=== PATIENT | male | born 2000 | race American Indian/Alaskan Native ===

== ENCOUNTER 2020-07-29 14:01 | Emergency (ER) | payer OTHER ==
[~2020-07-29] VITALS: Ht 172.7 cm; Wt 93.2 kg
[2020-07-29] MEDS ORDERED: NS 1,000 ML IV ONE (14:20)
[2020-07-29 14:58] LABS: BASO # 0.1 10^3/uL (0.0-0.2); BASO % 0.5 % (0.0-1.0); EOS % 0.1 % (0.0-3.0); HEMATOCRIT 45.2 % (42.0-52.0); HEMOGLOBIN 15.1 g/dl (13.5-17.5); LYMPH # 1.3 10^3/uL (1.5-5.0); LYMPH % 11.3 % (24.0-44.0); MEAN CORPUSCULAR HEMOGLOBIN 29.5 pg (27.0-33.0); MEAN CORPUSCULAR HGB CONC 33.4 g/dl (32.0-36.5); MEAN CORPUSCULAR VOLUME 88.5 fl (80.0-96.0); MONO # 0.8 10^3/uL (0.0-0.8); MONO % 6.8 % (2.0-8.0); NEUTROPHILS # 9.2 10^3/uL (1.5-8.5); NEUTROPHILS % 80.9 % (36.0-66.0); PLATELET COUNT, AUTOMATED 314 10^3/uL (150-450); RED BLOOD COUNT 5.11 10^6/uL (4.30-6.10); WHITE BLOOD COUNT 11.4 10^3/uL (4.0-10.0)
[2020-07-29 15:22] LABS: AMPHETAMINES LEVEL URINE NEGATIVE (NEGATIVE); BARBITURATES URINE NEGATIVE (NEGATIVE); BENZODIAZEPINES URINE NEGATIVE (NEGATIVE); CANNABINOIDS URINE NEGATIVE (NEGATIVE); COCAINE METABOLITE URINE NEGATIVE (NEGATIVE); METHADONE URINE NEGATIVE (NEGATIVE); OPIATES URINE NEGATIVE (NEGATIVE); PHENCYCLIDINE URINE NEGATIVE (NEGATIVE)
[2020-07-29 15:33] LABS: ALBUMIN 4.6 GM/DL (3.2-5.2); ALT/SGPT 15 U/L (12-78); BILIRUBIN,DIRECT 0.4 MG/DL (0.0-0.2); BILIRUBIN,TOTAL 1.4 MG/DL (0.2-1.0); BLOOD UREA NITROGEN 8 MG/DL (7-18); CALCIUM LEVEL 9.5 MG/DL (8.5-10.1); CARBON DIOXIDE LEVEL 24 MEQ/L (21-32); CHLORIDE LEVEL 99 MEQ/L (98-107); CK-MB VALUE MASS 1.6 NG/ML (<3.6); CPK CREATINE PHOSPHOKINASE 524 U/L (39-308); CREATININE FOR GFR 0.78 MG/DL (0.70-1.30); GLOMERULAR FILTRATION RATE > 60.0 (>60); GLUCOSE, FASTING 94 MG/DL (70-100); LIPASE 48 U/L (73-393); MB/CK RELATIVE INDEX 0.31 (< OR =4); POTASSIUM SERUM 3.3 MEQ/L (3.5-5.1); SODIUM LEVEL 134 MEQ/L (136-145); THYROID STIMULATING HORMONE 0.804 uIU/ML (0.358-3.740); TOTAL PROTEIN 8.3 GM/DL (6.4-8.2); TROPONIN I < 0.02 NG/ML (< 0.10)
[2020-07-29 17:11] LABS: ACETAMINOPHEN LEVEL < 2.0 UG/ML (10.0-30.0); SALICYLATE LEVEL < 1.7 MG/DL (5.0-30.0)
[2020-07-29 18:29] VITALS: BP 150/95
--- NOTE | 2020-07-30 06:35 | ECGEPIP ---
[facility] - ED Test Date: 2020-07-29 Pat Name: VANNESSA ESPOSITO Department: Room: - Gender: Male Intranet Specialist: : 2000 Requested By: [place] Order Number: [id number] Reading MD: Sharifa Millan Measurements Intervals [place] Rate: 72 P: 63 MA: 130 QRS: 45 QRSD: 98 T: 32 QT: 422 QTc: 462 Interpretive Statements Normal sinus rhythm with sinus arrhythmia Nonspecific ST T wave changes Borderline prolonged QTc No prior ECG for comparison Electronically Signed on 07-30-2020 6:34:44 EDT by Sharifa Millan
== END 2020-07-29 18:35 | disposition home or self-care (01) ==
LOC: EDBD 14:01 → M ED 14:01
DX: U07.0 Vaping-related disorder (principal); R45.0 Nervousness; T50.905A Adverse effect of unspecified drugs, medicaments and biological substances, initial encounter; F12.10 Cannabis abuse, uncomplicated

== ENCOUNTER 2020-07-30 10:47 | Observation (INO) | payer OTHER ==
[~2020-07-30] VITALS: Ht 177.8 cm; Wt 90.8 kg
[2020-07-30 11:38] LABS: HEMATOCRIT 44.1 % (42.0-52.0); HEMOGLOBIN 14.7 g/dl (13.5-17.5); MEAN CORPUSCULAR HEMOGLOBIN 29.9 pg (27.0-33.0); MEAN CORPUSCULAR HGB CONC 33.3 g/dl (32.0-36.5); MEAN CORPUSCULAR VOLUME 89.6 fl (80.0-96.0); PLATELET COUNT, AUTOMATED 306 10^3/uL (150-450); RED BLOOD COUNT 4.92 10^6/uL (4.30-6.10); WHITE BLOOD COUNT 13.5 10^3/uL (4.0-10.0)
[2020-07-30] MEDS ORDERED: LORazepam 2 MG/ML VIAL IV STA ×2 (11:39→12:40)
[2020-07-30] MEDS ORDERED: NS 1,000 ML IV ONE (11:40)
[2020-07-30 12:09] LABS: ACETAMINOPHEN LEVEL < 2.0 UG/ML (10.0-30.0); ALBUMIN 4.5 GM/DL (3.2-5.2); ALT/SGPT 16 U/L (12-78); BILIRUBIN,DIRECT 0.3 MG/DL (0.0-0.2); BILIRUBIN,TOTAL 0.9 MG/DL (0.2-1.0); BLOOD UREA NITROGEN 10 MG/DL (7-18); CALCIUM LEVEL 8.7 MG/DL (8.5-10.1); CARBON DIOXIDE LEVEL 26 MEQ/L (21-32); CHLORIDE LEVEL 101 MEQ/L (98-107); CREATININE FOR GFR 0.74 MG/DL (0.70-1.30); ETHYL ALCOHOL (ETHANOL) < 0.003 % (0.000-0.010); GLOMERULAR FILTRATION RATE > 60.0 (>60); GLUCOSE, FASTING 89 MG/DL (70-100); POTASSIUM SERUM 3.2 MEQ/L (3.5-5.1); SALICYLATE LEVEL < 1.7 MG/DL (5.0-30.0); SODIUM LEVEL 136 MEQ/L (136-145); THYROID STIMULATING HORMONE 0.875 uIU/ML (0.358-3.740); TOTAL PROTEIN 7.8 GM/DL (6.4-8.2)
[2020-07-30 12:48] LABS: AMPHETAMINES LEVEL URINE NEGATIVE (NEGATIVE); BARBITURATES URINE NEGATIVE (NEGATIVE); BENZODIAZEPINES URINE NEGATIVE (NEGATIVE); CANNABINOIDS URINE NEGATIVE (NEGATIVE); COCAINE METABOLITE URINE NEGATIVE (NEGATIVE); METHADONE URINE NEGATIVE (NEGATIVE); OPIATES URINE NEGATIVE (NEGATIVE); PHENCYCLIDINE URINE NEGATIVE (NEGATIVE)
--- NOTE | 2020-07-30 12:50 | REP ---
INDICATION: psychosis. COMPARISON: None. TECHNIQUE: CT BRAIN PERFORMED IN THE AXIAL PLANE. CORONAL RECONSTRUCTION IMAGES ARE PERFORMED. FINDINGS: THE VENTRICLES ARE NORMAL IN SIZE AND POSITION. THERE IS NO MIDLINE SHIFT OR MASS EFFECT. ONEAL-WHITE DIFFERENTIATION IS WELL MAINTAINED. THE BASAL GANGLIA ARE SYMMETRIC AND NORMAL. WHITE MATTER TRACTS NORMAL FOR AGE. THERE IS NO ACUTE INTRACRANIAL HEMORRHAGE OR EXTRA-AXIAL FLUID COLLECTION. POSTERIOR FOSSA UNREMARKABLE. THE BASAL CISTERNS ARE INTACT. BONE WINDOW EXAMINATION IS UNREMARKABLE. VISUALIZED MASTOID AIR CELLS AND PARANASAL SINUSES ARE CLEAR. IMPRESSION: NEGATIVE NONCONTRAST CT BRAIN. <Electronically signed by Rudy Gibson > 07/30/20 1242
[2020-07-30 12:52] LABS: CK-MB VALUE MASS 2.5 NG/ML (<3.6); CPK CREATINE PHOSPHOKINASE 642 U/L (39-308); MB/CK RELATIVE INDEX 0.39 (< OR =4); TROPONIN I < 0.02 NG/ML (< 0.10)
[2020-07-30] MEDS ORDERED: HALOPERIDOL 5MG/ML VIAL (J1630 PER 1) IM STA (13:02)
[2020-07-30] MEDS ORDERED: diphenhydrAMINE 50MG/ML VIAL (J1200) IM ONE (13:05)
--- NOTE | 2020-07-30 13:23 | ECGEPIP ---
[facility] - ED Test Date: 2020-07-30 Pat Name: VANNESSA ESPOSITO Department: Room: - Gender: Male Customer Relations Consultant: DELANEY : 2000 Requested By: Sharifa Millan Order Number: [id number] Reading MD: Sharifa Millan Measurements Intervals [place] Rate: 87 P: 66 [place]: 124 QRS: 42 QRSD: 98 T: 27 QT: 396 QTc: 476 Interpretive Statements Normal sinus rhythm Nonspecific ST T wave changes Borderline prolonged QTc cw 07/29/[address] T wave changes Electronically Signed on 07-30-2020 13:23:22 EDT by Sharifa Millan
[2020-07-30] MEDS ORDERED: diazePAM 10MG/2ML SYRINGE (J3360 PER 5MG) IV ONE (14:05)
[2020-07-30] MEDS ORDERED: LORazepam 2 MG/ML VIAL As Ordered ONE (14:24)
[2020-07-30] MEDS ORDERED: ACETAMINOPHEN TAB 650MG DOSE (2X325MG) PO PRN (15:35)
[2020-07-30] MEDS: NS 1,000 ML IV SCH ×2 (16:00→23:14)
[2020-07-30 16:38] LABS: RSV AMPLIFICATION NEGATIVE (NEGATIVE)
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
[2020-07-30] MEDS ORDERED: HALOPERIDOL 5MG/ML VIAL (J1630 PER 1) IV PRN (17:20)
[2020-07-30 20:08] VITALS: BP 133/76
[2020-07-31] VITALS (22 sets, daily range): BP systolic 105–155; BP diastolic 53–110
[2020-07-31] MEDS: HALOPERIDOL 5MG/ML VIAL (J1630 PER 1) IM PRN ×2 (00:38→07:04)
[2020-07-31 07:18] LABS: HEMATOCRIT 40.6 % (42.0-52.0); HEMOGLOBIN 13.5 g/dl (13.5-17.5); MEAN CORPUSCULAR HEMOGLOBIN 29.9 pg (27.0-33.0); MEAN CORPUSCULAR HGB CONC 33.3 g/dl (32.0-36.5); PLATELET COUNT, AUTOMATED 279 10^3/uL (150-450); RED BLOOD COUNT 4.51 10^6/uL (4.30-6.10); WHITE BLOOD COUNT 10.7 10^3/uL (4.0-10.0)
[2020-07-31 07:39] LABS: BLOOD UREA NITROGEN 6 MG/DL (7-18); CALCIUM LEVEL 8.5 MG/DL (8.5-10.1); CARBON DIOXIDE LEVEL 22 MEQ/L (21-32); CHLORIDE LEVEL 105 MEQ/L (98-107); CREATININE FOR GFR 0.61 MG/DL (0.70-1.30); GLOMERULAR FILTRATION RATE > 60.0 (>60); GLUCOSE, FASTING 87 MG/DL (70-100); POTASSIUM SERUM 3.2 MEQ/L (3.5-5.1); SODIUM LEVEL 139 MEQ/L (136-145)
[2020-07-31] MEDS ORDERED: LORazepam 2 MG/ML VIAL IV ONE (07:50)
[2020-07-31] MEDS ORDERED: LORazepam 2 MG/ML VIAL As Ordered ONE (07:59)
[2020-07-31] MEDS: NS 1,000 ML IV SCH ×3 (08:00→23:19)
[2020-07-31] MEDS ORDERED: KCL 10MEQ/100ML SWI (KRUN) 10 MEQ in IV 1 EA IV SCH (09:00)
[2020-07-31] MEDS: ENOXAPARIN 40MG/0.4ML SYRINGE (J1650 PER 10MG) SC SCH (09:00)
[2020-07-31] MEDS ORDERED: MIDAZOLAM 5MG/ML 1ML VIAL (J2250 PER 1MG) IM ONE ×2 (11:00→11:40)
[2020-07-31] MEDS ORDERED: MIDAZOLAM INJ 2MG/2ML VIAL (J2250 PER 1MG) As Ordered ONE (11:29)
[2020-07-31] MEDS ORDERED: MIDAZOLAM INJ 2MG/2ML VIAL (J2250 PER 1MG) IV ONE (11:30)
[2020-07-31] MEDS ORDERED: dexmedeTOMidine 200 MCG in IV 1 EA IV ONE (11:45)
[2020-07-31] MEDS: dexmedeTOMidine 200 MCG in IV 1 EA IV SCH ×4 (11:51→20:42)
--- NOTE | 2020-07-31 12:20 | IPNPDOC ---
Text Note Date of Service The patient was seen on 07/31/20. NOTE SUBJECTIVE: -still restless, confused and agitated. Required haldol overnight x 2. -This AM had ativan 4mg IV without effect and behavioral code was called for aggression --> transferred to ICU for sedation --> received 10mg total of IM versed, 4mg IV versed and now started on precedex gtt and in 4 point restraints. OBJECTIVE: General: Restless, agitated Eyes: PERRLA, Conjunctiva & lids normal, EOMI, anicteric ENT: Atraumatic, Mucous membr. moist/pink, Pharynx Normal Neck: Supple, no JVD or thyromegaly Chest: Clear to auscultation Heart: Tachycardic, Regular Rhythm, Normal S1, Normal S2, no m/r/g Telemetry: Sinus Tachycardia Abdomen: Normal bowel sounds, Soft, NTND Extremities: WWP, no LE edema Neuro: moving all extremities Psych: Before sedation he was alert, agitated, only knows self, questioning if he is alive? disoriented completely with visual and auditory hallucinations. 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 Encephalopathy: Most likely secondary metabolic 2/2 synthetic illicit drug used during vaping, possibly a stimulant given the hyperactive delirium and now co nfirmed known use by command and mother vs. very unlikely primary psychosis. -CT head wnl -tox screen negative -electrolytes wnl -covid-19 pending -s/p benzos PRN for sedation now on precedex gtt, PRN IV haldol for agitation -currently in 4 point restraints, that will now slowly come off as he is sedated -established contact with chain of command for context of presentation and history and they reported history of illicit drug use that was also corroborated by his mother. 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 -telemetry -EKG, CK -Dr. Kline is aware of the patient, will try to avoid intubation and paralysis etc HTN likely 2/2 stimulant use vs. other illicit drug -improving, will monitor Tachycardia: resolving, also likely 2/2 stimulant use vs. other illicit drug -monitor -IVF at 125cc/hr -telemetry Mild rhabdomyolysis: suspect that CK may rise given all the aggressive behavior and thrashing -s/p 2L NS in the ED -125cc/hr NS -check CK DVT ppx: lovenox 40mg SC Dispo: ICU VS,Fishbone, I+O VS, Fishbone, I+O Laboratory Tests 07/30/20 11:18 07/31/20 06:52 Vital Signs Date Time Temp Pulse Resp B/P (MAP) Pulse Ox O2 Delivery O2 Flow Rate FiO2 07/31/20 06:00 98.0 92 18 155/110 (125) 92 Room Air I&O- Last 24 Hours up to 6 AM 07/31/20 06:00 Intake Total 6000 ml Output Total 775 ml Balance 5225 ml TAMI CARLIN MD Jul 31, 2020 07:55
[2020-07-31 13:34] LABS: ABG BASE EXCESS -2.2 (-2.0-2.0); ABG HCO3 22.4 MEQ/L (22.0-26.0); ABG O2 SATURATION 99.3 % (95.0-99.0); ABG PARTIAL PRESSURE O2 193.3 mmHg (75.0-100.0); ABG STANDARD HCO3 22.6 MEQ/L (22.0-26.0); ABG TOTAL CO2 23.5 MEQ/L (22.0-29.0); ABG pH (ARTERIAL) 7.388 UNITS (7.350-7.450)
[2020-07-31] MEDS ORDERED: MIDAZOLAM INJ 2MG/2ML VIAL (J2250 PER 1MG) IV PRN (14:30)
[2020-07-31 15:32] LABS: ALBUMIN 3.8 GM/DL (3.2-5.2); ALT/SGPT 14 U/L (12-78); BILIRUBIN,TOTAL 1.3 MG/DL (0.2-1.0); BLOOD UREA NITROGEN 8 MG/DL (7-18); CALCIUM LEVEL 8.2 MG/DL (8.5-10.1); CARBON DIOXIDE LEVEL 24 MEQ/L (21-32); CHLORIDE LEVEL 106 MEQ/L (98-107); CPK CREATINE PHOSPHOKINASE 1808 U/L (39-308); CREATININE FOR GFR 0.64 MG/DL (0.70-1.30); GLOMERULAR FILTRATION RATE > 60.0 (>60); GLUCOSE, FASTING 89 MG/DL (70-100); MAGNESIUM LEVEL 2.4 MG/DL (1.8-2.4); POTASSIUM SERUM 3.2 MEQ/L (3.5-5.1); SODIUM LEVEL 140 MEQ/L (136-145); TOTAL PROTEIN 6.6 GM/DL (6.4-8.2)
[2020-07-31] MEDS: KCL 10MEQ/100ML SWI (KRUN) 10 MEQ in IV 1 EA IV SCH ×4 (16:21→19:54)
[2020-08-01] VITALS (17 sets, daily range): BP systolic 107–145; BP diastolic 66–91
[2020-08-01] MEDS: dexmedeTOMidine 200 MCG in IV 1 EA IV SCH ×2 (00:45→04:55)
[2020-08-01] MEDS: NS 1,000 ML IV SCH ×5 (04:38→23:51)
[2020-08-01 05:09] LABS: HEMATOCRIT 37.1 % (42.0-52.0); HEMOGLOBIN 12.2 g/dl (13.5-17.5); MEAN CORPUSCULAR HGB CONC 32.9 g/dl (32.0-36.5); MEAN CORPUSCULAR VOLUME 91.4 fl (80.0-96.0); PLATELET COUNT, AUTOMATED 234 10^3/uL (150-450); RED BLOOD COUNT 4.06 10^6/uL (4.30-6.10); WHITE BLOOD COUNT 13.5 10^3/uL (4.0-10.0)
[2020-08-01 05:33] LABS: BLOOD UREA NITROGEN 11 MG/DL (7-18); CALCIUM LEVEL 7.6 MG/DL (8.5-10.1); CARBON DIOXIDE LEVEL 20 MEQ/L (21-32); CHLORIDE LEVEL 108 MEQ/L (98-107); CREATININE FOR GFR 0.51 MG/DL (0.70-1.30); GLOMERULAR FILTRATION RATE > 60.0 (>60); GLUCOSE, FASTING 73 MG/DL (70-100); POTASSIUM SERUM 3.5 MEQ/L (3.5-5.1); SODIUM LEVEL 139 MEQ/L (136-145)
[2020-08-01] MEDS ORDERED: LORazepam 2 MG/ML VIAL IV PRN (07:45)
[2020-08-01] MEDS ORDERED: POTASSIUM CHLORIDE 10 MEQ SR TABLET PO ONE (08:00)
[2020-08-01 08:20] LABS: CPK CREATINE PHOSPHOKINASE 1137 U/L (39-308)
[2020-08-01] MEDS: ENOXAPARIN 40MG/0.4ML SYRINGE (J1650 PER 10MG) SC SCH (08:22)
--- NOTE | 2020-08-01 09:57 | ECGEPIP ---
[facility] Test Date: 2020-07-31 Pat Name: VANNESSA ESPOSITO Department: Room: [place] [address] Gender: Male Order Dispatcher: PAU : 2000 Requested By: TAMI Puga Order Number: [id number] Reading MD: Levy Cooper Measurements Intervals [place] Rate: 73 P: 50 VA: 138 QRS: 42 QRSD: 112 T: 20 QT: 458 QTc: 504 Interpretive Statements Normal sinus rhythm ST elevation, consider early repolarization, pericarditis, or injury Prolonged QTc Electronically Signed on 08-01-2020 9:56:39 EDT by Levy Cooper
--- NOTE | 2020-08-01 09:58 | ECGEPIP ---
[facility] Test Date: 2020-07-31 Pat Name: VANNESSA ESPOSITO Department: Room: [place] [address] Gender: Male Ad Operations Intern: PAU : 2000 Requested By: TAMI Puga Order Number: [id number] Reading MD: Levy Cooper Measurements Intervals [place] Rate: 70 P: 42 MS: 148 QRS: 35 QRSD: 114 T: 20 QT: 482 QTc: 520 Interpretive Statements Normal sinus rhythm Prolonged QTc- increased from tracing done at [address] elevation, consider early repolarization, pericarditis, or injury Electronically Signed on 08-01-2020 9:58:04 EDT by Levy Cooper
[2020-08-01] MEDS: NICOTINE 21MG/24HR 1 EA TRANSDERMAL TD SCH (10:57)
--- NOTE | 2020-08-01 11:07 | IPNPDOC ---
Text Note Date of Service The patient was seen on 08/01/20. NOTE SUBJECTIVE: -Alert, oriented x 3, very emotional -Off precedex OBJECTIVE: General: NAD Eyes: PERRLA, Conjunctiva & lids normal, EOMI, anicteric ENT: Atraumatic, Mucous membr. 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 Encephalopathy: Secondary metabolic 2/2 synthetic illicit drug used during vaping, possibly a stimulant given the hyperactive delirium and now confirmed known use by command and mother. -CT head wnl -tox screen negative -electrolytes wnl -covid-19 negative -s/p precedex gtt now on PRN ativan -established contact with chain of [employer] for context of presentation and history and they reported history of illicit drug use that was also corroborated by his mother. 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 -telemetry -f/u CK -psych consult will be placed today for depressed mood -PRN ativan HTN likely 2/2 stimulant/illicit drug use: resolved Tachycardia: 2/2 illicit stimulant use, resolved -monitor -IVF at 200cc/hr Rhabdomyolysis: 2/2 aggressive behavior and thrashing -s/p 2L NS in the ED -200cc/hr NS -CK now downtrending DVT ppx: lovenox 40mg SC Dispo: medsurg VS,Fishbone, I+O VS, Fishbone, I+O Laboratory Tests 07/31/20 14:25 08/01/20 04:58 Vital Signs Date Time Temp Pulse Resp B/P (MAP) Pulse Ox O2 Delivery O2 Flow Rate FiO2 08/01/20 06:00 60 20 133/74 (93) 99 Room Air 08/01/20 04:00 98.3 07/31/20 14:00 2.0 I&O- Last 24 Hours up to 6 AM 08/01/20 06:00 Intake Total 4380.5 ml Output Total 1230 ml Balance 3150.5 ml TAMI CARLIN MD Aug 01, 2020 07:45
[2020-08-01] MEDS ORDERED: RAMELTEON 8 MG TAB (ROZEREM) PO PRN (21:40)
[2020-08-02] MEDS: NS 1,000 ML IV SCH (04:55)
[2020-08-02 06:00] VITALS: BP 159/96
[2020-08-02 06:50] LABS: HEMOGLOBIN 13.1 g/dl (13.5-17.5); MEAN CORPUSCULAR HEMOGLOBIN 29.8 pg (27.0-33.0); MEAN CORPUSCULAR HGB CONC 32.8 g/dl (32.0-36.5); MEAN CORPUSCULAR VOLUME 90.9 fl (80.0-96.0); PLATELET COUNT, AUTOMATED 249 10^3/uL (150-450); WHITE BLOOD COUNT 8.9 10^3/uL (4.0-10.0)
[2020-08-02 07:39] LABS: BLOOD UREA NITROGEN 3 MG/DL (7-18); CALCIUM LEVEL 8.3 MG/DL (8.5-10.1); CARBON DIOXIDE LEVEL 25 MEQ/L (21-32); CHLORIDE LEVEL 108 MEQ/L (98-107); CREATININE FOR GFR 0.46 MG/DL (0.70-1.30); GLOMERULAR FILTRATION RATE > 60.0 (>60); GLUCOSE, FASTING 86 MG/DL (70-100); POTASSIUM SERUM 3.4 MEQ/L (3.5-5.1); SODIUM LEVEL 142 MEQ/L (136-145)
--- NOTE | 2020-08-02 08:30 | DS.PDOC ---
Discharge Summary General Date of Admission Jul 30, 2020 at 10:48 Date of Discharge 08/02/2020 Attending Physician: TAMI CARLIN MD Discharge Summary PROCEDURES PERFORMED DURING STAY: None ADMITTING DIAGNOSES: Encephalopathy DISCHARGE DIAGNOSES: Illicit stimulant induced psychosis and encephalopathy PSUD Rhabdomyolysis HTN COMPLICATIONS/CHIEF COMPLAINT: Psychosis Vapes Non Nicotine Containing Substance. 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 HOSPITAL COURSE: In the ED he was restless, agitated and was given ativan 2mg without much effect and later haldol with some mild redirectibility. ED work up was notable for CT head wnl, WBC 13.5, Hgb 14.7, platelets 306, na 136, K 3.2, Cr 0.74, CK 642, negative toxicology screen and CXR wnl. On my initial evaluation he was restless, had pressured speech, distracted, nervous appearing, sometimes saying things that are not related to the questions I was asking, and was hypertensive to SBP 176 and tachycardic. He was admitted to medicine for mild rhabdo with secondary likely synthetic illicits use driven metabolic encephalopathy. His agitation and hyperactive delirium worsened that he was transferred to the ICU for sedation and required multiple doses of benzos, haldol and eventually precedex drip and brief physical restraints and 1:1 sitter. By day 3 AM he was alert, oriented and remorseful. He was given IVF for rhabdo with much improvement with preserved renal function. He was seen by psychiatry and deemed safe for home discharge with plan for follow up at [facility] as well as PCP follow up for HTN. DISCHARGE MEDICATIONS: Please see below. ALLERGIES: Please see below. PHYSICAL EXAMINATION ON DISCHARGE: VITAL SIGNS: Please see below. General: NAD Eyes: PERRLA, Conjunctiva & lids normal, EOMI, anicteric ENT: Atraumatic, Mucous membr. moist/pink, Pharynx Normal Neck: Supple, no JVD or thyromegaly Chest: Clear to auscultation Heart: Tachycardic, Regular Rhythm, Normal S1, Normal S2, no m/r/g Telemetry: Sinus Tachycardia Abdomen: Normal bowel sounds, Soft, NTND Extremities: WWP, no LE edema Neuro: moving all extremities Psych: AOx3, in contemplative mood. LABORATORY DATA: Please see below. IMAGING: CT head - no acute abnormalities noted. WNL PROGNOSIS: Excellent if he refrains from illicit drug use ACTIVITY: As tolerated DIET: 2g sodium DISCHARGE PLAN: Home with close follow up with [facility] and PCP follow up for HTN DISPOSITION: Home with close follow up with [facility] and PCP follow up for HTN DISCHARGE INSTRUCTIONS: Home with close follow up with [facility] and PCP follow up for HTN ITEMS TO FOLLOWUP ON ON OUTPATIENT: Illicit stimulants use Possible mood disorder evaluation by outpatient behavioral health HTN monitoring and treatment by PCP DISCHARGE CONDITION: Stable TIME SPENT ON DISCHARGE: 45 minutes. Vital Signs/I&Os Vital Signs Date Time Temp Pulse Resp B/P (MAP) Pulse Ox O2 Delivery O2 Flow Rate FiO2 08/02/20 06:00 98.5 72 16 159/96 (117) 99 Room Air 07/31/20 14:00 2.0 I&O- Last 24 Hours up to 6 AM 08/02/20 05:59 Intake Total 2719.0 ml Output Total 1000 ml Balance 1719.0 ml Laboratory Data Labs 24H Laboratory Tests 2 08/02/20 06:08: Nucleated Red Blood Cells % (auto) 0.0, Anion Gap 9, Glomerular Filtration Rate > 60.0, Calcium Level 8.3L CBC/BMP Laboratory Tests 08/02/20 06:08 Discharge Medications No Active Prescriptions or Reported Meds Allergies Coded Allergies: No Known Allergies (Unverified , 07/29/20) TAMI CARLIN MD Aug 02, 2020 08:30
[2020-08-02] MEDS: NICOTINE 21MG/24HR 1 EA TRANSDERMAL TD SCH (08:45)
[2020-08-02] MEDS: ENOXAPARIN 40MG/0.4ML SYRINGE (J1650 PER 10MG) SC SCH (08:45)
[2020-08-02] MEDS ORDERED: POTASSIUM CHLORIDE 10 MEQ SR TABLET PO ONE (09:00)
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
== END 2020-08-02 10:30 | disposition home or self-care (01) ==
LOC: M ED 10:47 → EDBD 10:47 → M ED INP 10:48 → ENRESERV 19:05 → M MSPAV 20:08 → M ICU 07-31 11:07 → M MS5PR 08-01 11:38
PROVIDERS: ADMIT Internal Medicine; ATTEND Internal Medicine
DX: F15.959 Other stimulant use, unspecified with stimulant-induced psychotic disorder, unspecified (principal); G93.49 Other encephalopathy; M62.82 Rhabdomyolysis; I10 Essential (primary) hypertension; F17.290 Nicotine dependence, other tobacco product, uncomplicated; R00.0 Tachycardia, unspecified
CPT/HCPCS: 36415; 36600; 70450; 80048; 80053; 80076; 80143; 80307; 82077; 82550; 82553; 82803; 83735; 84443; 84484; 85027; 87631; 93005; 93041; 96361; 96365; 96366; 96372; 96375; 96376; 99285; J1200; J1630; J1650; J2060; J2250; J3360

== ENCOUNTER 2020-10-16 21:25 | Emergency (ER) | payer OTHER ==
[~2020-10-16] VITALS: Ht 177.8 cm; Wt 92.2 kg
[2020-10-16 23:12] LABS: BASO # 0.1 10^3/uL (0.0-0.2); BASO % 1.2 % (0.0-1.0); EOS # 0.1 10^3/uL (0.0-0.5); EOS % 1.6 % (0.0-3.0); HEMATOCRIT 44.5 % (42.0-52.0); HEMOGLOBIN 14.6 g/dl (13.5-17.5); LYMPH # 2.6 10^3/uL (1.5-5.0); MEAN CORPUSCULAR HEMOGLOBIN 29.6 pg (27.0-33.0); MEAN CORPUSCULAR HGB CONC 32.8 g/dl (32.0-36.5); MEAN CORPUSCULAR VOLUME 90.1 fl (80.0-96.0); MONO # 0.4 10^3/uL (0.0-0.8); MONO % 6.1 % (2.0-8.0); NEUTROPHILS # 3.4 10^3/uL (1.5-8.5); NEUTROPHILS % 51.5 % (36.0-66.0); PLATELET COUNT, AUTOMATED 332 10^3/uL (150-450); RED BLOOD COUNT 4.94 10^6/uL (4.30-6.10); WHITE BLOOD COUNT 6.7 10^3/uL (4.0-10.0)
[2020-10-16] MEDS ORDERED: LORazepam 1 MG TAB PO STA (23:21)
[2020-10-16 23:33] LABS: AMPHETAMINES LEVEL URINE NEGATIVE (NEGATIVE); BARBITURATES URINE NEGATIVE (NEGATIVE); BENZODIAZEPINES URINE NEGATIVE (NEGATIVE); CANNABINOIDS URINE NEGATIVE (NEGATIVE); COCAINE METABOLITE URINE NEGATIVE (NEGATIVE); METHADONE URINE NEGATIVE (NEGATIVE); OPIATES URINE NEGATIVE (NEGATIVE); PHENCYCLIDINE URINE NEGATIVE (NEGATIVE)
[2020-10-16 23:45] LABS: ACETAMINOPHEN LEVEL < 2.0 UG/ML (10.0-30.0); ALBUMIN 4.2 GM/DL (3.2-5.2); ALT/SGPT 39 U/L (12-78); BILIRUBIN,DIRECT < 0.1 MG/DL (0.0-0.2); BILIRUBIN,TOTAL 0.3 MG/DL (0.2-1.0); BLOOD UREA NITROGEN 5 MG/DL (7-18); CALCIUM LEVEL 8.1 MG/DL (8.5-10.1); CARBON DIOXIDE LEVEL 26 MEQ/L (21-32); CHLORIDE LEVEL 115 MEQ/L (98-107); CPK CREATINE PHOSPHOKINASE 107 U/L (39-308); CREATININE FOR GFR 0.69 MG/DL (0.70-1.30); ETHYL ALCOHOL (ETHANOL) 0.478 % (0.000-0.010); GLOMERULAR FILTRATION RATE > 60.0 (>60); GLUCOSE, FASTING 103 MG/DL (70-100); POTASSIUM SERUM 3.9 MEQ/L (3.5-5.1); SALICYLATE LEVEL < 1.7 MG/DL (5.0-30.0); SODIUM LEVEL 148 MEQ/L (136-145); THYROID STIMULATING HORMONE 0.619 uIU/ML (0.358-3.740); TOTAL PROTEIN 7.8 GM/DL (6.4-8.2)
[2020-10-17] MEDS ORDERED: FOLIC ACID 1 MG TAB PO SCH (09:00)
[2020-10-17] MEDS ORDERED: THIAMINE 100 MG TAB PO SCH (09:00)
[2020-10-17] MEDS ORDERED: MULTIVITAMINS/MINERALS THERAP 1 TAB PO SCH (09:00)
[2020-10-17] MEDS ORDERED: LORazepam 2 MG TAB PO PRN (09:20)
[2020-10-17 14:28] VITALS: BP 152/96
== END 2020-10-17 14:39 | disposition home or self-care (01) ==
LOC: M ED 21:25
DX: F43.0 Acute stress reaction (principal); F10.120 Alcohol abuse with intoxication, uncomplicated